=== PATIENT | female | born 1970 | race Caucasian/White ===

== ENCOUNTER 2022-04-12 20:58 | Emergency (ER) | payer OTHER ==
[~2022-04-12] VITALS: Ht 172.7 cm; Wt 65.8 kg
[~2022-04-12 20:58] MED LIST: BUME1 PO; CARV6.25 PO; K-Dur10 MEQ PO; MAGNESIUM OXID500 MG PO; MIDO5 PO; SPIR25 PO
[2022-04-12 21:45] LABS: BASOPHILS ABSOLUTE AUTO 0.06 K/mm3 (0.00-0.23); BASOPHILS PERCENT AUTO 1 % (0-2); EOSINOPHILS ABSOLUTE AUTO 0.11 K/mm3 (0.00-0.68); EOSINOPHILS PERCENT AUTO 1 % (0-6); Hematocrit 42.3 % (33.0-51.0); Hemoglobin 12.9 g/dL (11.5-16.0); IMMATURE GRAN ABSOLUTE AUTO 0.02 K/mm3 (0.00-0.10); IMMATURE GRAN PERCENT AUTO 0 % (0-1); LYMPHOCYTES PERCENT AUTO 16 % (21-46); MONOCYTES PERCENT AUTO 6 % (4-13); Mean Corpuscular HGB 24.5 pg (26.0-34.0); Mean Corpuscular HGB Conc 30.5 g/dL (31.5-36.5); Mean Corpuscular Volume 80 fL (80-100); Mean Platelet Volume 9.8 fL (9.1-12.4); NEUTROPHILS ABSOLUTE AUTO 5.94 K/mm3 (1.96-9.15); NEUTROPHILS PERCENT AUTO 75 % (41-73); Platelet Count 273 K/mm3 (150-400); RDW Coefficient Variation 19.6 % (11.7-14.2); RDW Standard Deviation 56.2 fL (35.1-46.3); Red Blood Cell Count 5.26 M/mm3 (3.80-5.20); White Blood Cell Count 7.93 K/mm3 (4.00-11.30)
[2022-04-12 22:05] LABS: Albumin, Blood 3.6 g/dL (3.4-5.0); Albumin/Globulin Ratio 0.9 (0.8-1.8); Bilirubin, Total 0.7 mg/dL (0.1-1.0); Bun/Creatinine Ratio 36.7 (12.0-20.0); Calcium, Blood 9.5 mg/dL (8.5-10.1); Creatinine, Blood 0.6 mg/dL (0.40-1.00); Globulin, Blood 4.2 g/dL (2.2-4.0); Total Protein, Blood 7.8 g/dL (6.4-8.2)
[2022-04-12 23:04] LABS: Magnesium, Blood 2.1 mg/dL (1.6-2.4)
[2022-04-13] MEDS ORDERED: Prednisone20 MG PO (00:20)
[2022-04-13] MEDS ORDERED: ALBU90OI INH (00:20)
== END 2022-04-13 00:27 | disposition home or self-care (01) ==
LOC: ER 20:58
PROVIDERS: Student in an Organized Health Care Education/Training Program
DX: J44.1 Chronic obstructive pulmonary disease with (acute) exacerbation (principal); I50.9 Heart failure, unspecified; I25.2 Old myocardial infarction; F17.200 Nicotine dependence, unspecified, uncomplicated; Z79.899 Other long term (current) drug therapy
CPT/HCPCS: 36415; 71046; 80053; 83735; 83880; 84484; 85025; 93005; 93010; 94644; 94664; 96374; 96375; 99284-25; J1940; J2405; J7512

== ENCOUNTER 2022-04-28 14:34 | Emergency (ER) | payer OTHER ==
[~2022-04-28] VITALS: Ht 172.7 cm; Wt 63.5 kg
[~2022-04-28 14:34] MED LIST changes: +ALBU90OI INH; +Prednisone20 MG PO
[2022-04-28 16:27] LABS: BASOPHILS ABSOLUTE AUTO 0.05 K/mm3 (0.00-0.23); BASOPHILS PERCENT AUTO 1 % (0-2); EOSINOPHILS ABSOLUTE AUTO 0.13 K/mm3 (0.00-0.68); EOSINOPHILS PERCENT AUTO 1 % (0-6); Hemoglobin 12.3 g/dL (11.5-16.0); IMMATURE GRAN ABSOLUTE AUTO 0.03 K/mm3 (0.00-0.10); IMMATURE GRAN PERCENT AUTO 0 % (0-1); LYMPHOCYTES ABSOLUTE AUTO 1.35 K/mm3 (0.84-5.20); LYMPHOCYTES PERCENT AUTO 15 % (21-46); MONOCYTES ABSOLUTE AUTO 0.43 K/mm3 (0.16-1.47); MONOCYTES PERCENT AUTO 5 % (4-13); Mean Corpuscular HGB 24.8 pg (26.0-34.0); Mean Corpuscular HGB Conc 30.8 g/dL (31.5-36.5); Mean Corpuscular Volume 81 fL (80-100); Mean Platelet Volume 9.4 fL (9.1-12.4); NEUTROPHILS ABSOLUTE AUTO 7.18 K/mm3 (1.96-9.15); NEUTROPHILS PERCENT AUTO 78 % (41-73); Platelet Count 244 K/mm3 (150-400); RDW Coefficient Variation 20.7 % (11.7-14.2); RDW Standard Deviation 60.1 fL (35.1-46.3); Red Blood Cell Count 4.96 M/mm3 (3.80-5.20); White Blood Cell Count 9.17 K/mm3 (4.00-11.30)
[2022-04-28 16:50] LABS: Albumin, Blood 3.4 g/dL (3.4-5.0); Albumin/Globulin Ratio 0.8 (0.8-1.8); Bilirubin, Total 0.5 mg/dL (0.1-1.0); Calcium, Blood 9.1 mg/dL (8.5-10.1); Creatinine, Blood 0.68 mg/dL (0.40-1.00); Total Protein, Blood 7.4 g/dL (6.4-8.2)
[2022-04-28 16:54] LABS: Influenza A, PCR NEGATIVE (NEGATIVE); Influenza B, PCR NEGATIVE (NEGATIVE); Resp Syncytial Virus, PCR NEGATIVE (NEGATIVE); SARS-Cov-2 (COVID-19) PCR, MMC NEGATIVE (NEGATIVE)
== END 2022-04-28 19:51 | disposition home or self-care (01) ==
LOC: ER 14:34
PROVIDERS: Emergency Medicine; Student in an Organized Health Care Education/Training Program
DX: J20.9 Acute bronchitis, unspecified (principal); J44.0 Chronic obstructive pulmonary disease with (acute) lower respiratory infection; I50.9 Heart failure, unspecified; I25.2 Old myocardial infarction; F17.200 Nicotine dependence, unspecified, uncomplicated; Z20.822 Contact with and (suspected) exposure to COVID-19; Z79.899 Other long term (current) drug therapy; Z79.52 Long term (current) use of systemic steroids
CPT/HCPCS: 0241U; 36415; 71045; 80053; 84484; 85025; 93005; 93010; 96374; 96375; 99285-25; A9270; J1885; J2405

== ENCOUNTER 2022-04-30 10:17 | Inpatient (IN) | payer OTHER ==
[~2022-04-30] VITALS: Ht 170.2 cm; Wt 71.1 kg
[2022-04-30 10:30] LABS: Chloride (POC) 104 mmol/L (98-108); Creatinine (POC) 1.1 mg/dL (0.6-1.0); Glucose (ISTAT POC) 229 mg/dL (70-99); Hemoglobin (POC) 15.6 g/dL (12.0-16.0); Potassium (POC) 4.4 mmol/L (3.5-5.5); Sodium (POC) 141 mmol/L (135-148); Total CO2 (POC) 28 mmol/L (21-32)
[2022-04-30 10:48] LABS: Hematocrit 46.9 % (33.0-51.0); Hemoglobin 13.4 g/dL (11.5-16.0); Mean Corpuscular HGB 25.5 pg (26.0-34.0); Mean Corpuscular HGB Conc 28.6 g/dL (31.5-36.5); NRBC ABSOLUTE 0.05 K/mm3 (0.00-0.02); NRBC Auto 0.3 /100 WBC (0.0-0.2); Platelet Count 156 K/mm3 (150-400); RDW Coefficient Variation 21.5 % (11.7-14.2); RDW Standard Deviation 68.1 fL (35.1-46.3); Red Blood Cell Count 5.26 M/mm3 (3.80-5.20); White Blood Cell Count 15.68 K/mm3 (4.00-11.30)
[2022-04-30 11:09] LABS: Mean Corpuscular Volume 89 fL (80-100)
[2022-04-30 11:15] LABS: BASOPHILS PERCENT MAN 0 % (0-2); EOSINOPHILS ABSOLUTE MAN 0.15 K/mm3 (0.00-0.68); EOSINOPHILS PERCENT MAN 1 % (0-6); LYMPHOCYTES ABSOLUTE MAN 7.68 K/mm3 (0.84-5.20); LYMPHOCYTES PERCENT MAN 49 % (21-46); MONOCYTES ABSOLUTE MAN 0.78 K/mm3 (0.16-1.47); MONOCYTES PERCENT MAN 5 % (4-13); MYELOCYTE ABSOLUTE MAN 0.31 K/mm3 (0.00-0.00); MYELOCYTE PERCENT MAN 2 % (0-0); NEUTROPHILS ABSOLUTE MAN 6.74 K/mm3 (1.96-9.15); SEG NEUTROPHILS PERCENT MAN 43 % (41-73); TOTAL CELLS COUNTED 100
[2022-04-30 11:19] LABS: Albumin, Blood 3.1 g/dL (3.4-5.0); Albumin/Globulin Ratio 0.7 (0.8-1.8); Bilirubin, Total 0.4 mg/dL (0.1-1.0); Bun/Creatinine Ratio 24.7 (12.0-20.0); Calcium, Blood 8.5 mg/dL (8.5-10.1); Creatinine, Blood 0.97 mg/dL (0.40-1.00); Globulin, Blood 4.3 g/dL (2.2-4.0); Potassium, Blood 4.4 mmol/L (3.5-5.5); Total Protein, Blood 7.4 g/dL (6.4-8.2)
[2022-04-30 12:35] LABS: U Amphetamine Screen Not Detected; U Barbituate Screen Not Detected; U Benzodiazapine Screen Not Detected; U Buprenorphine Screen Not Detected; U Cannabinoids Screen DETECTED; U Cocaine Screen Not Detected; U Methadone Screen Not Detected; U Methamphetamine Screen Not Detected; U Opiates Screen Not Detected; U Oxycodone Screen Not Detected; U Phencyclidine Screen Not Detected; U Propoxyphene Screen Not Detected
--- NOTE | 2022-04-30 13:12 | NUR ---
ED Palliative Care Consult 52 year old female to the ED after approximately 30 minutes of CPR. Pt's medical history and comorbidities include: CHF, COPD, and Polysubstance abuse. Spoke with Dr Vanegas and discussed case. Family be benefit from advanced care planning and code status discussion. Pt resting on gurney, intubated and not sedated. O2 saturations at time of initial visit are in 50-60's. Daughter Hilary and her friend are at bedside. Offered emotional support and engaged in therapeutic conversation regarding advanced care planning including the potential need to plan for the future. Gentle discussion regarding code status. Daughter reports needing to discuss further with other family members. Hilary reports Pt stated "don't let me ". Hilary reports intitiating CPR. She states she understands the risks involved including potential anoxic injury and will discuss further with family in regards to future CPR. Hilary agreeable for continued supportive visits. Palliative Care will remain available
--- NOTE | 2022-04-30 13:25 | NUR ---
PT ADMITTED TO ICU AT 1315 FROM ER S/P CARDIAC ARREST. [facility] AC/VC 14/430/100%/10. SATS 70-80'S. PT ARRIVED W LEVOPHED AT 2MCG, BP STABLE W MAP >70; LEVOPHED PLACED ON STANDBY. AZITHROMYCIN STOPPED PER DR ELDRIDGE. PT WITH MANY RHTHYM CHANGES, EKG COMPLETED. DETAILER FURNITURE CONSULTED BY DR ELDRIDGE. AMIO BOLUS FOLLOWED BY GTT ORDERED. LUNGS COARSE, PUPILS 3/3MM REACTIVE/SLUGGISH.
--- NOTE | 2022-04-30 14:19 | NUR ---
AMIODARONE BOLUS GIVEN, AMIO GTT AT 1MG/MIN. LEVOPHED AT 2MCG. DR STEPHENS AT BEDSIDE TO SEE PT. DR ELDRIDGE PLACING COOLING CATH NOW; PT'S DAUGHTER CONSENTED FOR PROCEDURE.
[2022-04-30 15:32] LABS: BASOPHILS ABSOLUTE AUTO 0.07 K/mm3 (0.00-0.23); BASOPHILS PERCENT AUTO 0 % (0-2); EOSINOPHILS PERCENT AUTO 0 % (0-6); Hematocrit 45.2 % (33.0-51.0); Hemoglobin 12.9 g/dL (11.5-16.0); IMMATURE GRAN ABSOLUTE AUTO 0.26 K/mm3 (0.00-0.10); IMMATURE GRAN PERCENT AUTO 1 % (0-1); LYMPHOCYTES ABSOLUTE AUTO 1.03 K/mm3 (0.84-5.20); LYMPHOCYTES PERCENT AUTO 5 % (21-46); MONOCYTES ABSOLUTE AUTO 1.42 K/mm3 (0.16-1.47); MONOCYTES PERCENT AUTO 7 % (4-13); Mean Corpuscular HGB Conc 28.5 g/dL (31.5-36.5); Mean Corpuscular Volume 88 fL (80-100); NEUTROPHILS ABSOLUTE AUTO 19.02 K/mm3 (1.96-9.15); NEUTROPHILS PERCENT AUTO 87 % (41-73); NRBC ABSOLUTE 0.02 K/mm3 (0.00-0.02); NRBC Auto 0.1 /100 WBC (0.0-0.2); Platelet Count 230 K/mm3 (150-400); RDW Coefficient Variation 21.3 % (11.7-14.2); RDW Standard Deviation 67.7 fL (35.1-46.3); Red Blood Cell Count 5.15 M/mm3 (3.80-5.20)
[2022-04-30 15:46] LABS: International Normalized Ratio 1.54; Prothrombin Time Results 15.7 Sec (9.7-11.5)
[2022-04-30 15:53] LABS: Albumin, Blood 2.8 g/dL (3.4-5.0); Albumin/Globulin Ratio 0.7 (0.8-1.8); Bilirubin, Total 0.6 mg/dL (0.1-1.0); Bun/Creatinine Ratio 23.5 (12.0-20.0); Calcium, Blood 9.3 mg/dL (8.5-10.1); Creatinine, Blood 1.32 mg/dL (0.40-1.00); Globulin, Blood 4.2 g/dL (2.2-4.0); Potassium, Blood 4.9 mmol/L (3.5-5.5)
[2022-04-30 18:14] LABS: PCO2 Arterial > 104 mmHg (35-45); PO2 Arterial 52.1 mmHg (80-100); pH Blood Arterial 7.02 (7.35-7.45)
[2022-04-30 18:25] LABS: BASOPHILS ABSOLUTE AUTO 0.06 K/mm3 (0.00-0.23); BASOPHILS PERCENT AUTO 0 % (0-2); EOSINOPHILS PERCENT AUTO 0 % (0-6); Hemoglobin 11.9 g/dL (11.5-16.0); IMMATURE GRAN ABSOLUTE AUTO 0.39 K/mm3 (0.00-0.10); IMMATURE GRAN PERCENT AUTO 2 % (0-1); LYMPHOCYTES ABSOLUTE AUTO 1.09 K/mm3 (0.84-5.20); LYMPHOCYTES PERCENT AUTO 5 % (21-46); MONOCYTES ABSOLUTE AUTO 1.21 K/mm3 (0.16-1.47); MONOCYTES PERCENT AUTO 6 % (4-13); Mean Corpuscular HGB 24.9 pg (26.0-34.0); Mean Corpuscular HGB Conc 27.7 g/dL (31.5-36.5); Mean Corpuscular Volume 90 fL (80-100); Mean Platelet Volume 9.7 fL (9.1-12.4); NEUTROPHILS ABSOLUTE AUTO 18.22 K/mm3 (1.96-9.15); NEUTROPHILS PERCENT AUTO 87 % (41-73); NRBC ABSOLUTE 0.04 K/mm3 (0.00-0.02); NRBC Auto 0.2 /100 WBC (0.0-0.2); Platelet Count 172 K/mm3 (150-400); RDW Coefficient Variation 20.9 % (11.7-14.2); Red Blood Cell Count 4.77 M/mm3 (3.80-5.20); White Blood Cell Count 20.97 K/mm3 (4.00-11.30)
[2022-04-30 18:41] LABS: International Normalized Ratio 1.92
[2022-04-30 18:45] LABS: Magnesium, Blood 3.2 mg/dL (1.6-2.4)
[2022-04-30 18:47] LABS: Prothrombin Time Results 19.3 Sec (9.7-11.5)
[2022-04-30 19:04] LABS: Bun/Creatinine Ratio 22.5 (12.0-20.0); Calcium, Blood 8.6 mg/dL (8.5-10.1); Creatinine, Blood 1.42 mg/dL (0.40-1.00); Phosphorus, Blood 8.8 mg/dL (2.5-4.9); Potassium, Blood 4.9 mmol/L (3.5-5.5)
--- NOTE | 2022-04-30 19:51 | NUR ---
Call back - Space provided for daughter Reg to process posibility of DNR for her mother. Reg reflects on pt's situation up to this point - 3X CPR, including once administered by her. Reg's friend and pt's ex Eder were present provided support as well. it project manager and both explained current status of pt and Reg appeared to understand the discussion well. Reg chooses DNR with support of those friends present, as well as her 2 siblings. Verbal prayer extended for peace and comfort.
--- NOTE | 2022-04-30 19:52 | NUR ---
COOLING CATH WAS PLACED BY DR ELDRIDGE AND COOLING STARTED W GOAL TEMP OF 32.[address] SCAN FOR SCAN OF HEAD AND CHEST AROUND 1645. AT THIS TIME BP STARTED TO TREND DOWN AND LEVOPHED WAS INCREASED UP TO 16MCG; DR ELDRIDGE AWARE. PT TO CT WITH OUT INCIDENCE. ONCE BACK IN ICU BP CONTINUED TO FALL, LEVOPHED INCREASED TO 30MCG AND EPI GTT ORDERED. AT 1745 PT BECAME BRADYCARDIC, DR ELDRIDGE AT BEDSIDE, ONE AMP EPI ORDERED AND GIVEN. AT 1746 PT WENT INTO [facility], CPR STARTED, CODE CALLED. PT'S DAUGHTER AT BEDSIDE DURING CODE; SUPPORT CALLED FOR FAMILY. SEE CODE BLUE SHEET FOR FULL SUMMERY. PULSE WAS REGAINED AT 1754. EPI GTT PLACED AT 10MCG PER DR ELDRIDGE. PRIOR TO CODE PT UNRESPONSIVE OTHER THAN PUPILS WHICH WERE REACTIVE, EQUAL, BUT SLUGGISH. ABSENT CORNEAL REFLEX, ABSENT COUGH, GAG, NO MOVEMENT NOTED, ABSENT RESPONSE TO PAIN, NEG DOLLS EYES, ABSENT PLANTAR. PT HAD BEEN HAVING WHAT APPEARED TO BE MYOCLONIC JERKING WHICH INCREASED AFTER CT SCAN. ATIVAN 2MG GIVEN AT [address] ELDRIDGE FOR SUSPECTED SEIZURE ACTIVITY. BICARB GTT STARTED, AMIO GTT REMAINS AT 1MG/MIN. NO URINE OUTPUT THIS SHIFT. PT DNR PER DAUGHTER, PT'S DAUGHTER IS CONSIDERING COMFORT CARE. BEDSIDE REPORT GIVEN TO YOGI VELASCO.
--- NOTE | 2022-05-01 00:53 | NUR ---
BRADYCARDIA/AFIB MONITOR SHOWS AFIB, RATE 90s-100s AND SHORT PERIODS OF BRADYCARDIA, RATE MID 30s TO 50s. NO NEW ORDERS AT THIS TIME.
[2022-05-01 03:38] LABS: BASOPHILS ABSOLUTE AUTO 0.08 K/mm3 (0.00-0.23); BASOPHILS PERCENT AUTO 0 % (0-2); EOSINOPHILS PERCENT AUTO 0 % (0-6); Hemoglobin 12.8 g/dL (11.5-16.0); IMMATURE GRAN ABSOLUTE AUTO 0.23 K/mm3 (0.00-0.10); IMMATURE GRAN PERCENT AUTO 1 % (0-1); LYMPHOCYTES ABSOLUTE AUTO 0.43 K/mm3 (0.84-5.20); LYMPHOCYTES PERCENT AUTO 2 % (21-46); MONOCYTES ABSOLUTE AUTO 0.92 K/mm3 (0.16-1.47); MONOCYTES PERCENT AUTO 4 % (4-13); Mean Corpuscular HGB 25.1 pg (26.0-34.0); Mean Corpuscular HGB Conc 28.4 g/dL (31.5-36.5); Mean Corpuscular Volume 88 fL (80-100); Mean Platelet Volume 10.5 fL (9.1-12.4); NEUTROPHILS PERCENT AUTO 93 % (41-73); NRBC ABSOLUTE 0.02 K/mm3 (0.00-0.02); NRBC Auto 0.1 /100 WBC (0.0-0.2); Platelet Count 142 K/mm3 (150-400); RDW Coefficient Variation 21.1 % (11.7-14.2); RDW Standard Deviation 67.2 fL (35.1-46.3); Red Blood Cell Count 5.09 M/mm3 (3.80-5.20); White Blood Cell Count 23.06 K/mm3 (4.00-11.30)
[2022-05-01 06:22] LABS: International Normalized Ratio 2.23; Prothrombin Time Results 22.2 Sec (9.7-11.5)
[2022-05-01 06:27] LABS: Magnesium, Blood 2.7 mg/dL (1.6-2.4)
[2022-05-01 06:37] LABS: Albumin, Blood 2.6 g/dL (3.4-5.0); Albumin/Globulin Ratio 0.8 (0.8-1.8); Bilirubin, Total 2.7 mg/dL (0.1-1.0); Bun/Creatinine Ratio 21.8 (12.0-20.0); Calcium, Blood 7.3 mg/dL (8.5-10.1); Creatinine, Blood 1.79 mg/dL (0.40-1.00); Globulin, Blood 3.2 g/dL (2.2-4.0); Phosphorus, Blood 8.6 mg/dL (2.5-4.9); Potassium, Blood 5.4 mmol/L (3.5-5.5); Total Protein, Blood 5.8 g/dL (6.4-8.2)
--- NOTE | 2022-05-01 06:54 | NUR ---
SHIFT SUMMARY REMAINS INTUBATED. CONTINUES TO BE UNRESPONSIVE TO NOXIOUS STIMULI. PUPILS SLUGGISHLY REACTIVE TO LIGHT. CONTINUES WITH FREQUENT MYOCLONIC JERKS AND INTERMITTENT SEIZURE-LIKE ACTIVITY- MEDICATED WITH ATIVAN 2MG IV X 2 DOSES. EPINEPHRINE TITRATED BETWEEN 10-15MCG/MIN- NOW INFUSING AT 10MCG/MIN. LEVOPHED TITRATED BETWEEN 25-30MCG/MIN- NOW INFUSING AT 26MCG/MIN. AMIODARONE AT 0.5MG/MIN. BICARB GTT AT 75MLS/HR. OG TO LIS WITH DARK BROWNISH-RED DRAINAGE. BLANK PATENT AND DRAINING SCANT YELLOW URINE. TEMP 93-95F. FAMILY AT BEDSIDE. DAUGHTERS ARE ARGUING REGARDING PLAN OF CARE. WILL REPORT TO ONCOMING RN WHEN AVAILABLE.
--- NOTE | 2022-05-01 08:43 | NUR ---
CARE OF PT ASSUMED AT 0700. PT UNRESPONSIVE OTHER THAN BREATHING OVER VENT AND PUPILARY RESPONSE. ABSENT CORNEAL REFLEX, ABSENT PLANTAR, ABSENT RESPONSE TO PAIN, ABSENT COUGH/GAG. PUPILS 3/3MM SLUGISH, NEG DOLLS EYES. PT APPEARS TO BE HAVING FREQUENT MYOCLONIC JERKS. BROWN/RED TINGED OGT OUTPUT; LOVENOX HELD PER DR ELDRIDGE. CREPITUS NOTED TO RIGHT CHEST WALL, SATS REMAIN LOW 40-70'S. DR JAZMYN LYMAN AND AT BEDSIDE WITHIN MINS. CHEST XRAY TAKEN. EPI AT 10, LEVOPHED AT 26MCG, BICARB AT 75, AMIO AT 0.5MG/MIN. PT IS BEING COOLED VIA COOLING CATH W [employer] TEMP SET AT 33.5C. FAMILY INDICATES THAT THEY WOULD LIKE TO WITHDRAWAL CARE AND MAKE PT COMFORTABLE; DR ELDRIDGE AWARE.
[2022-05-01 09:19] LABS: Base Excess Venous -23.7 mmol/L; PCO2 Venous 83.5 mmHg (38-42)
[2022-05-01 09:20] LABS: pH Blood Venous <6.80 (7.34-7.37)
[2022-05-01 09:21] LABS: Bicarbonate Venous 9.4 mmol/L (24.0-30.0)
--- NOTE | 2022-05-01 09:42 | NUR ---
CRITICAL HIGH VBG PH OF 6.[address] ELDRIDGE. RATE INCREASED TO 24, BICARB GTT INCREASED TO 150CC/HR. LEVOPHED INCREASED TO 30MCG TO KEEP MAP >65. PT'S FAMILY AT BEDSIDE (DAUGHTERS).
--- NOTE | 2022-05-01 10:54 | NUR ---
PT EXTUBATED AT 1055 PER FAMILY WISHES.
--- NOTE | 2022-05-01 11:19 | NUR ---
Supportive visit this AM. Family at bedside. Family reports they have elected to move forward with comfort care. Continued therapeutic listening, offered emotional support, and answered question. Gentle education on possible S/S Pt may experience and encouraged family to speak with Pt and reasure Pt. Spoke with Dr Ochoa and discussed case. Placed comfort care order, and comfort care order set per V/O from Dr Ochoa. Continued supportive visit for family as Pt passes away. Offered condolences and continued emotional support. Family appears to be grieving appropriately. Spinning Lathe Operator in to offer spiritual support. Pt peacefully and comfortably. Palliative Care will remain available.
--- NOTE | 2022-05-01 11:46 | NUR ---
TIME OF 1108, FAMILY AND PALLIATIVE CARE AT BEDSIDE. PASTORAL CARE AT BEDSIDE WELL. TWO RINGS GIVEN TO PT'S DAUGHTER JAMAL. FAMILY AT BEDSIDE NOW. LOCK OF HAIR AND FINGER PRINTS/KEYCHAIN GIVEN TO FAMILY WITG GRIEF PACKET.
--- NOTE | 2022-05-01 11:48 | NUR ---
Call back - [facility] enters and provides words of comfort to pt. Pt's 2 daughters are present, along with friend. RN enters and verifies TOD. Daughter Reg begins grieving and is consuled by friend. Both daughters are grieving appropriately. Both step out eventually for space. On previous interaction, it was noted that Reg does not like showing emotion in front of others. Will remain available to pt's decendents as needed.
== END 2022-05-01 16:42 | DRG 208 ==
LOC: ER 10:17 → ICUW 10:18 → ICUE 13:19
PROVIDERS: Emergency Medicine; Internal Medicine Critical Care Medicine; ADMIT Internal Medicine
PROC: 06HY33Z Insertion of Infusion Device into Lower Vein, Percutaneous Approach (ICD-10-PCS; principal; 2022-04-30)
PROC: 5A1935Z Respiratory Ventilation, Less than 24 Consecutive Hours (ICD-10-PCS; 2022-04-30)
PROC: 4A033R1 Measurement of Arterial Saturation, Peripheral, Percutaneous Approach (ICD-10-PCS; 2022-04-30)
PROC: 3E033XZ Introduction of Vasopressor into Peripheral Vein, Percutaneous Approach (ICD-10-PCS; 2022-04-30)
PROC: 0BH17EZ Insertion of Endotracheal Airway into Trachea, Via Natural or Artificial Opening (ICD-10-PCS; 2022-04-30)
PROC: 5A12012 Performance of Cardiac Output, Single, Manual (ICD-10-PCS; 2022-04-30)
PROC: 0T9B70Z Drainage of Bladder with Drainage Device, Via Natural or Artificial Opening (ICD-10-PCS; 2022-04-30)
PROC: 0D9670Z Drainage of Stomach with Drainage Device, Via Natural or Artificial Opening (ICD-10-PCS; 2022-04-30)
DX: J96.01 Acute respiratory failure with hypoxia (principal); I21.4 Non-ST elevation (NSTEMI) myocardial infarction; J18.9 Pneumonia, unspecified organism; G93.1 Anoxic brain damage, not elsewhere classified; Q89.3 Situs inversus; E87.20 Acidosis, unspecified; I47.20 Ventricular tachycardia, unspecified; J93.83 Other pneumothorax; I42.9 Cardiomyopathy, unspecified; M96.A3 Multiple fractures of ribs associated with chest compression and cardiopulmonary resuscitation; M96.A1 Fracture of sternum associated with chest compression and cardiopulmonary resuscitation; J44.0 Chronic obstructive pulmonary disease with (acute) lower respiratory infection; Z51.5 Encounter for palliative care; Z66 Do not resuscitate; I50.82 Biventricular heart failure; I46.8 Cardiac arrest due to other underlying condition; R57.0 Cardiogenic shock; R56.9 Unspecified convulsions; F17.210 Nicotine dependence, cigarettes, uncomplicated; I11.0 Hypertensive heart disease with heart failure; I49.01 Ventricular fibrillation; I25.10 Atherosclerotic heart disease of native coronary artery without angina pectoris; I50.9 Heart failure, unspecified; I44.7 Left bundle-branch block, unspecified; F15.10 Other stimulant abuse, uncomplicated; Z79.899 Other long term (current) drug therapy; Z79.51 Long term (current) use of inhaled steroids; Z79.52 Long term (current) use of systemic steroids; Z98.890 Other specified postprocedural states; I25.2 Old myocardial infarction; Z87.19 Personal history of other diseases of the digestive system
CPT/HCPCS: 31500; 36415; 36556; 36600; 51702; 70450; 71045; 71250; 80047; 80048; 80053; 82803; 82947; 83605; 83735; 84100; 84484; 85014; 85025; 85610; 85730; 87040; 87070; 87205; 92950; 93005; 93010; 94002; 94644; 94664; 96365; 96367; 96375; 99285-25; C8929; C9113; J0171; J0282; J0456; J0692; J0696; J1815; J1953; J2060; J2270; J2930; J3370; J3475; J7030; J7040; J7050; J7060; J7070; Q9957